=== PATIENT | female | born 1990 | race Caucasian/White ===

== ENCOUNTER 2018-07-17 17:10 | Emergency (ER) | payer BC, SELFPAY ==
[2018-07-17 17:18] VITALS: BP 122/85; PULSE 77; RESP 16; TEMP 36.3; O2SAT 98
[2018-07-17 18:03] LABS: Bilirubin Negative (Negative); Blood Trace-intact (Negative); Clarity Clear; Glucose Negative (Negative); Ketones Trace mg/dL (Negative); Leukocyte Esterase Negative (Negative); Nitrite Negative (Negative); Specific Gravity 1.025 (1.005-1.025); Urobilinogen 0.2 EU/dL (Up TO 0.2)
[2018-07-17 18:18] LABS: Bacteria Few HPF (Negative); C & S Indicated? No; Casts Negative LPF (Negative); Crystals Negative HPF (Negative); Epithelial Cells Few HPF (Negative); Mucus Trace (Negative); Other Cells Negative (Negative); WBC Negative HPF (0-5)
--- NOTE | 2018-07-17 18:28 | DI.RAD_ITS ---
SYMPTOM/DIAGNOSIS: RT SIDED CHEST, AND RIB PAIN. R/O ACUTE PROCESS PA AND LATERAL CHEST: The lungs are free of infiltrates. There is no pleural effusion. The cardiovascular structures are intact. There is no evidence of an acute rib fracture. SUMMARY: No acute abnormality seen.
--- NOTE | 2018-07-17 18:31 | ED.GENADUL_ITS ---
Discharge Plan Disposition Patient Disposition: HOME Condition: Stable Discharge Details Chief Complaint: Abd Prob Clinical Impression: Right-sided chest wall pain, Strain of chest wall Primary Care Provider: Angelo Savage ED Provider: Gayla Shaw Home Meds and New Rx's Prescriptions: New ibuprofen 600 mg tablet 600 mg PO QID PRN (Reason: pain) Qty: 20 RF: 0 Continue norgestimate-ethinyl estradiol [Previfem] 1 EACH tablet RF: 0 omeprazole 40 mg Capsule,Delayed Release(Dr/Ec) 40 mg PO DAILY RF: 0 Discharge Instructions Instructions: Muscle Strain (ED), Chest Wall Pain (ED) Additional Instructions: Alternate ice and heat to the affected area several times daily for 20 minutes of time. Alternate Tylenol and Motrin as needed and directed for pain. Follow-up with your primary care doctor in 1 week for reevaluation. Return immediately to the emergency department any worsening or new concerning symptoms. Discharge Data Discharge Date/Time-TO BE ENTERED AT DEPARTURE: 07/17/18 21:05 Discharge Physician: Gayla Shaw Medical Decision Making 28-year-old female who presents with right-sided anterior chest pain with radiation around to her back since this morning, worse this afternoon. Pain is worse with movement, palpation and deep breath. Admits to chronic cough for the past few months and states it is worse with coughing. She denies fever, abdominal pain, change in appetite, vomiting, diarrhea. Denies recent travel, recent surgery, leg pain or swelling. Patient initially had signed into triage as abdominal pain but she denies this. She points to her left anterior chest under her breast as a source of pain. Her abdomen is soft and nontender. Vitals within normal limits. Afebrile. Patient appears nontoxic. Her right anterior chest under her breast is tender to palpation and worse with movement. Patient noted to be in pain when standing up out of stretcher and moving around. Her lungs are clear to auscultation. Due to complaints of chest pain and abdominal pain, I do not see any indication for abdominal labs. Appears most likely musculoskeletal. Will check an EKG, chest x-ray and give a dose of Toradol. EKG notes a rate of 66, sinus, no ST elevation or depression. QTC 398. QRS 87. UCG negative. 2044 --chest x-ray negative. Patient states she feels much better. She denies any chest or back pain. Reassessment of abdomen is nontender and soft. Patient feels good and is requesting to go home. She states she normally uses albuterol inhaler as needed and forgot to get it from her primary care doctor recently. Will send home with a inhaler to use as needed. HPI General Mode of arrival: ambulatory . Date/Time Provider Initiated Documentation: 07/17/18 17:37 . Limitations to Documentation: no limitations . Information obtained by: patient . HPI Narrative: Pt is a 28yo F who presents to the ED w/ a c/o R sided chest/rib pain since this morning and worse while driving in the car later today. States the pain is worse with movement and deep inspiration. She admits to a h/o chronic cough for months since a diagnosis of bronchitis. She denies known injury, fever, shortness of breath, sputum production. She has not taken anything for pain. She denies abdominal pain, nausea, vomiting or diarrhea, recent travel, recent surgery, leg pain/swelling. Past medical history: Asthma Surgical history: Tonsillectomy Social history: Occasional alcohol, denies tobacco or drugs Meds: Previfen, Prilosec Allergies: NKDA PCP: [facility] LMP: currently on menses Related Data Home Medications Medication Instructions Recorded Confirmed norgestimate-ethinyl estradiol 08/29/13 07/20/15 [Previfem] ibuprofen 600 mg PO QID PRN #20 tab 07/17/18 omeprazole 40 mg PO DAILY 07/17/18 07/17/18 Previous Rx's Medication Instructions Recorded ibuprofen 600 mg PO QID PRN #20 tab 07/17/18 Allergies Allergy/AdvReac Type Severity Reaction Status Date / Time No Known Allergies Allergy Unverified 07/17/18 17:36 General Stated Complaint: Abd Prob NIKI: 3 Review of Systems Review of Systems All systems reviewed & are unremarkable except as noted in HPI and below Constitutional Reports as per HPI, Denies chills and Denies fever(s) Eyes Denies blurry vision ENT Denies dizziness, Denies sore throat and Denies throat swelling Cardiovascular Reports chest pain and Denies dyspnea Respiratory Denies dyspnea Gastrointestinal Denies abdominal pain, Denies diarrhea and Denies vomiting Genitourinary Denies hematuria and Denies dysuria Musculoskeletal Denies back pain and Denies numbness Integumentary/Breasts Denies lesions and Denies rash Neurologic Denies dizziness and Denies numbness Allergic/Immunologic Denies throat swelling [facility] Social History Smoking/Tobacco Use Status: Never Exam Const General: cooperative and healthy appearing Orientation: alert and awake [facility] Head: normal to inspection Ears: hearing grossly normal bilaterally and external ears normal General nose exam: external nose normal Face and sinus: normal facial exam Mouth: oral mucosae normal Teeth and gingiva: dentition normal Throat: posterior oropharynx normal Eyes General: appearance normal, both eyes and all related structures Eyelids: eyelids normal EOM: EOM intact bilaterally Neck Neck: normal visual inspection Lymphatic: no lymphadenopathy noted Chest Chest: normal inspection of the chest and tenderness rib (Moderate tenderness to palpation R anterior chest under breast. No rash, edema, erythema, ecchymoses , crepitus) Breast inspection: normal inspection of the breasts Resp Effort & Inspection: normal respiratory effort and able to speak in complete sentences Auscultation: clear to auscultation bilaterally Cardio Rate: regular rate Rhythm: regular rhythm GI Inspection: normal to inspection Palpation: soft, not firm, no guarding, no hepatosplenomegaly, no masses and nontender Auscultation: normal bowel sounds Back/Spine/Pelvis Back: no CVA tenderness Skin General skin exam: no rashes or lesions noted Neuro General: alert and awake Cognition: normal cognition Speech: speech normal Gait: normal gait Motor: muscle tone normal throughout Sensory Exam: no sensory deficits noted Extrem General: normal to inspection, full ROM, normal capillary refill, no calf tenderness bilaterally and no edema Psych Appearance: grossly normal Mental Status: mental status grossly normal Speech and Movement: speech and movement normal Affect: normal affect Thought Process: normal Course Vital Signs Temperature 97.3 F L 07/17/18 17:18 Pulse 77 07/17/18 17:18 Respiratory Rate 16 07/17/18 17:18 Blood Pressure 122/85 07/17/18 17:18 Pulse Oximetry 98 07/17/18 17:18 Temperature 97.3 F L 07/17/18 17:18 Temperature Source Temporal Artery Scan 07/17/18 17:18 Pulse 77 07/17/18 17:18 Respiratory Rate 16 07/17/18 17:18 Respiratory Effort Non-Labored 07/17/18 17:35 Blood Pressure 122/85 07/17/18 17:18 Blood Pressure Position Sitting 07/17/18 17:18 Pulse Oximetry 98 07/17/18 17:18 Oxygen Delivery Method Room Air 07/17/18 17:18 Oxygen Flow Rate 0 07/17/18 17:18 Pain Level 9 07/17/18 17:18 Lab/Test Results Lab/Test Results: Laboratory Tests Range/Units 07/17/18 17:43 Urine Color (Yellow) Yellow Urine Clarity Clear Urine pH (5-8) 6.0 Ur Specific [place] (1.005-1.025) 1.025 Urine Protein (Negative) mg/dL Negative Urine Ketones (Negative) mg/dL Trace H Urine Blood (Negative) Trace-intact H Urine Nitrite (Negative) Negative Urine Bilirubin (Negative) Negative Urine Urobilinogen (Up TO 0.2) EU/dL 0.2 Ur Leukocyte Esterase (Negative) Negative Urine RBC (0-2) 3-5 H Urine WBC (0-5) HPF Negative Ur Epithelial Cells (Negative) HPF Few Urine Crystals (Negative) HPF Negative Urine Bacteria (Negative) HPF Few Urine Casts (Negative) LPF Negative Urine Mucus (Negative) Trace Urine Other (Negative) Negative Ur Culture Indicated? No Urine Glucose (Negative) mg/dL Negative POC- Test(urine) Negative
[2018-07-17] MEDS: Ketorolac 30 MG/ML VIAL IVP (19:06)
--- NOTE | 2018-07-17 19:42 | DI.VRAD_ITS ---
EXAM: XR Chest, 2 Views EXAM DATE/TIME: 07/17/2018 6:29 PM CLINICAL HISTORY: 28 years old, female; Pain; Chest pain and chest wall pain; Right-sided chest pain; Patient HX: R sided chest and rib pain; Additional info: R/O acute process TECHNIQUE: XR of the chest, 2 views. COMPARISON: CR CHEST 2 VIEWS PA,LAT 08/29/2013 12:17 PM FINDINGS: Lungs: No consolidation. Pleural space: No pleural effusion. No pneumothorax. Heart/Mediastinum: No cardiomegaly. Bones/joints: No acute fracture. IMPRESSION: No acute cardiopulmonary pathology. Dictated and Authenticated by: Honey Encinas MD. Ordering:ELIZABETH GODFREY MD
[2018-07-17] MEDS: Albuterol HFA 8 GM 60 PUFF INH IH (20:58)
== END 2018-07-17 21:05 | disposition home or self-care (01) ==
PROVIDERS: Emergency Provider Physician Assistant; PCP Physician Assistant Medical
DX: S29.011A Strain of muscle and tendon of front wall of thorax, initial encounter (principal); X50.1XXA Overexertion from prolonged static or awkward postures, initial encounter
CPT/HCPCS: 36415; 81025; 96374; 99284; 71046; 81003; 81015; J1885

== ENCOUNTER 2018-09-27 14:49 | Outpatient (REF) | payer OTHER, SELFPAY | END 2018-09-27 15:09 | LOC: NCHCN 14:49 | PROVIDERS: PCP Physician Assistant Medical; Visit Provider Physician Assistant Medical | DX: N76.0 Acute vaginitis (principal) | CPT/HCPCS: 87480; 87510; 87660 ==

== ENCOUNTER 2019-11-07 21:02 | Outpatient (REF) | payer OTHER, SELFPAY ==
[2019-11-07 21:15] LABS: Abs Immature Grans 0.04 k/cumm (0.0-0.09); Absolute Basophil Count 0.04 k/cumm (0.0-0.2); Absolute Eosinophil Count 0.15 k/cumm (0.0-0.7); Absolute Lymphocyte Count 3.53 k/cumm (1.2-3.4); Absolute Monocyte Count 0.66 k/cumm (0.11-0.7); Absolute Neutrophil Count 5.67 k/cumm (1.2-6.7); Basophils % 0.4; Eosinophils % 1.5; HCT 37.8 % (36.0-46.0); HGB 12.5 g/dL (12.0-15.5); Immature Grans % 0.4 %; Mean Corp. HGB Concentration 33.1 g/dL (32.0-36.0); Mean Corpuscular Hemoglobin 29.8 pg (27.0-33.0); Mean Platelet Volume 9.3 fL (8.0-11.0); Monocytes % 6.5; Neutrophils % 56.2; Platelet Count 442 x1000/uL (130-400); RBC Distribution Width 13.2 % (11.7-14.6); White Blood Cell Count 10.09 k/cumm (4.4-10.8)
[2019-11-07 21:40] LABS: ALT 18 U/L (14-59); AST 14 U/L (15-37); Albumin 3.7 g/dL (3.4-5.0); Alkaline Phosphatase 66 U/L (46-116); Anion Gap 8.8 mmol/L (3-11); BUN 13 mg/dL (7-18); Bilirubin, Total 0.1 mg/dL (0.2-1.0); CO2 27.2 mmol/L (21.0-32.0); CREATININE 0.72 mg/dL (0.55-1.02); Calcium 9.2 mg/dL (8.5-10.1); Chloride 103 mmol/L (98-107); Glucose 94 mg/dL (74-106); Potassium 4.3 mmol/L (3.5-5.1); Sodium 139 mmol/L (136-145); TSH (W/Ref FT4) 1.94 uIU/mL (0.36-3.74); Total Protein 7.3 g/dL (6.4-8.2)
== END 2019-11-07 21:22 ==
LOC: NCHCN 21:02
PROVIDERS: PCP Physician Assistant Medical; Visit Provider Physician Assistant Medical
DX: R53.83 Other fatigue (principal)
CPT/HCPCS: 80053; 84443; 85025

== ENCOUNTER 2021-01-14 18:42 | Outpatient (REF) | payer SELFPAY ==
--- NOTE | 2021-01-14 17:00 | PAPFT_PTH ---
PATIENT: Joy Flores LOC: [facility]#:[id number] AGE/SX: 30/F ROOM: RE01/14/[address]: Angelo Savage : 1990 BED: DIS: 01/14/2021 SPEC #: [id number] RECD: 01/15/21 12:39 STATUS: CARLOS REWolfgang #: [id number] KATHY: 01/14/21 17:[address]: Angelo Savage [facility]PT: [facility] Cytology RECD BY: Catie Harp Tissues: 1 - CX/ENDOCX FOR PAP SMEARS Procedures: PAP THIN PREP/UVM Screening Comments: [id number]
[2021-01-16 14:11] LABS: Chlamydia Result Negative (Negative); GC Result Negative (Negative)
== END 2021-01-14 18:43 | disposition home or self-care (01) ==
LOC: NCHCN 18:42
PROVIDERS: PCP Physician Assistant Medical; Visit Provider Physician Assistant Medical
DX: Z00.00 Encounter for general adult medical examination without abnormal findings (principal); Z11.3 Encounter for screening for infections with a predominantly sexual mode of transmission; Z12.4 Encounter for screening for malignant neoplasm of cervix
CPT/HCPCS: 87491; 87591; 88142; 87480; 87510; 87660

== ENCOUNTER 2022-09-07 12:44 | Outpatient (REF) | payer SELFPAY ==
[2022-09-08 13:35] LABS: Chlamydia Result Negative (Negative); GC Result Negative (Negative)
== END 2022-09-07 12:45 | disposition home or self-care (01) ==
LOC: LBN 12:44
PROVIDERS: PCP Physician Assistant Medical; Visit Provider Obstetrics & Gynecology
DX: N93.9 Abnormal uterine and vaginal bleeding, unspecified (principal)
CPT/HCPCS: 87491; 87591

== ENCOUNTER 2023-11-10 10:12 | Outpatient (CLI) | payer BC, SELFPAY ==
[2023-11-10 10:14] LABS: TSH 1.55 uIU/Ml (0.36-3.74)
[2023-11-10 18:36] LABS: Prolactin 11.5 ng/mL (See Note)
== END 2023-11-10 10:13 | disposition home or self-care (01) ==
LOC: LBO 10:14
PROVIDERS: PCP Physician Assistant Medical; Visit Provider Advanced Practice Midwife
DX: N93.9 Abnormal uterine and vaginal bleeding, unspecified (principal)
CPT/HCPCS: 36415; 84146; 84443

== ENCOUNTER 2024-01-06 21:02 | Outpatient (REF) | payer BC, SELFPAY ==
[2024-01-09 11:49] LABS: Lyme Ab w Rflx to Lyme Confirm Negative (Negative)
[2024-01-11 01:05] LABS: Anaplasma phagocytophilum Negative (Negative); B. miyamotoi PCR Negative (Negative); Babesia divergens/MO-1 Negative (Negative); Babesia duncani Negative (Negative); Babesia microti Negative (Negative); Ehrlichia chaffeensis Negative (Negative); Ehrlichia ewingii/canis Negative (Negative); Ehrlichia muris eauclairensis Negative (Negative)
== END 2024-01-06 21:03 | disposition home or self-care (01) ==
LOC: NCHCN 21:02
PROVIDERS: PCP Physician Assistant Medical; Visit Provider Physician Assistant Medical
DX: M25.50 Pain in unspecified joint (principal)
CPT/HCPCS: 87798; 86618

== ENCOUNTER 2024-02-07 18:17 | Outpatient (REF) | payer BC, SELFPAY ==
[2024-02-07 19:02] LABS: HGB 12.7 g/dL (11.2-15.7); MCH 31.1 pg (27.0-33.0); MCHC 33.4 % (32.0-36.0); MCV 93 fL (80-95); MPV 9.6 fL (8.0-11.0); Platelet Count 341 10^3/uL (130-400); RBC 4.09 10^6/uL (3.93-5.22); RDW 12.7 % (11.7-14.6); RDW-SD 43.4 fL; WBC 9.07 10^3/uL (4.4-10.8)
[2024-02-07 19:04] LABS: ESR 4 mm/hr (0-20)
[2024-02-07 19:28] LABS: C-Reactive Protein 0.84 mg/dL (<or=0.5); TSH (W/Ref FT4) 2.76 uIU/mL (0.36-3.74)
[2024-02-08 17:18] LABS: Rheumatoid Factor <8.6 IU/mL (<12.0)
[2024-02-09 12:50] LABS: ANA Interpretation Negative (Negative)
== END 2024-02-07 18:18 | disposition home or self-care (01) ==
LOC: NCHCN 18:17
PROVIDERS: PCP Physician Assistant Medical; Visit Provider Physician Assistant Medical
DX: M25.50 Pain in unspecified joint (principal)
CPT/HCPCS: 85027; 85652; 84443; 86038; 86140; 86431

== ENCOUNTER 2024-10-23 11:39 | Outpatient (REF) | payer BC, SELFPAY ==
[2024-10-24 08:48] LABS: Cyclic Citrullinated Peptide <2.5 U/mL (<5.0)
== END 2024-10-23 11:40 | disposition home or self-care (01) ==
LOC: NCHCN 11:39
PROVIDERS: PCP Physician Assistant Medical; Visit Provider Physician Assistant Medical
DX: M25.59 Pain in other specified joint (principal)
CPT/HCPCS: 86200

== ENCOUNTER 2025-04-19 19:19 | Outpatient (CLI) | payer BC, SELFPAY | END 2025-04-19 19:20 | disposition home or self-care (01) | LOC: LBO 19:19 | PROVIDERS: PCP Physician Assistant Medical; Visit Provider Obstetrics & Gynecology | DX: O20.0 Threatened abortion (principal) | CPT/HCPCS: 36415; 86850; 86900; 86901; 84702 ==